=== PATIENT | male | born 2000 | race Caucasian/White ===

== ENCOUNTER → 2024-09-26 | Outpatient (CLI) | payer BC, SELFPAY ==
[2024-09-26 14:50] LABS: Vitamin D,25 Hydroxy 36.8 ng/mL
[2024-09-26 14:54] LABS: ALB/GLOB Ratio 1.4 RATIO (0.9-2.4); AST(SGOT) 17 U/L (15-37); Alanine Aminotransfer ALT/SGPT 20 U/L (16-61); Albumin, Serum 4.2 g/dL (3.2-5.0); Alkaline Phosphatase 136 U/L (45-117); Anion Gap 8 (5-15); BUN 14 mg/dL (7-18); BUN/Creat Ratio 16.3 RATIO (10-20); Calcium,Total 8.8 mg/dL (8.5-10.1); Chloride 106 mmol/L (98-107); Creatinine, Serum 0.86 mg/dL (0.70-1.30); EST Glomerular Filtration Rate 116 mL/min (>60); Est Glom Filt Rate - Afr Amer 140 mL/min (>60); Free T3 2.8 pg/mL (2.18-3.98); Glucose 181 mg/dL (74-106); Protein, Total 7.2 g/dL (6.4-8.2); Sodium Level 141 mmol/L (136-145); T4 Free Direct 0.92 ng/dL (0.76-1.46)
[2024-09-26 15:14] LABS: Microalbumin,Random Urine 7.6 mg/L (NO RANGE EST.); Microalbumin:Creatinine Ratio 10.4 mg/g CRE (<30 mg/g CRE)
[2024-09-28 04:08] LABS: Thyroid Peroxidase AB 12 IU/mL (0-34)
== END | disposition home or self-care (01) ==
LOC: PAVLAB 13:44
PROVIDERS: Referring Provider Internal Medicine Endocrinology, Diabetes & Metabolism; Visit Provider Internal Medicine Endocrinology, Diabetes & Metabolism
DX: E10.9 Type 1 diabetes mellitus without complications (principal); Z96.41 Presence of insulin pump (external) (internal); E55.9 Vitamin D deficiency, unspecified; G47.00 Insomnia, unspecified
CPT/HCPCS: 36415; 80053; 82043; 82306; 82570; 84439; 84443; 84481; 86376